=== PATIENT | male | born 1975 | race Caucasian/White ===

== ENCOUNTER 2020-12-31 08:48 | Outpatient (CLI) | payer OTHER, SELFPAY ==
--- NOTE | 2020-12-31 08:45 | RT.EKG_ITS ---
APPROVED REPORT Exam: Resting ECG Reason for Exam: high risk med Patient Location: O HR:63 bpm ECG Measurements Heart Rate 63 AXIS NV 182 P 15 QRSd 100 QRS 27 QT 403 T 52 QTc 413 Conclusion Sinus rhythm...normal P axis, V-rate 60- 99 Normal Electrocardiogram
== END 2020-12-31 08:49 | disposition home or self-care (01) ==
PROVIDERS: PCP Nurse Practitioner Family; Visit Provider Family Medicine
DX: Z79.899 Other long term (current) drug therapy (principal)
CPT/HCPCS: 93005; 93010

== ENCOUNTER 2022-10-30 09:07 | Outpatient (CLI) | payer BC, SELFPAY ==
--- NOTE | 2022-10-30 09:00 | RT.EKG_ITS ---
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
== END 2022-10-30 09:08 | disposition home or self-care (01) ==
LOC: CARDOPNVT 09:07
PROVIDERS: PCP Nurse Practitioner Family; Visit Provider Family Medicine
DX: Z79.899 Other long term (current) drug therapy (principal)
CPT/HCPCS: 93005; 93010